=== PATIENT | female | born 1950 | race Caucasian/White ===

== ENCOUNTER 2017-03-14 16:03 | Emergency (ER) | payer MEDICAID ==
[~2017-03-14] VITALS: Ht 162.6 cm; Wt 56.2 kg
[2017-03-14 16:07] VITALS: BP 96/63
[2017-03-14 17:03] LABS: PATH.CAST-FLAG NOT PRESENT; SPERM-FLAG NOT PRESENT; SRC-FLAG NOT PRESENT; XTAL-FLAG NOT PRESENT; YLC-FLAG NOT PRESENT
[2017-03-14 17:23] LABS: ASPARTATE AMINO TRANSFERASE 17 U/L (15-37); BLOOD UREA NITROGEN 22 mg/dL (7-18)
[2017-03-14] MEDS ORDERED: ONDA4TAB13 SL (17:47)
[2017-03-14] MEDS ORDERED: HYDROmorphone 1 MG/ML, 1ML IM ONE (19:00)
[2017-03-14] MEDS ORDERED: CEFTRIAXONE 1,000 MG IM ONE (19:00)
[2017-03-14] MEDS ORDERED: KETOROLAC 30 MG/1 ML IM ONE (19:00)
[2017-03-14] MEDS ORDERED: HYDROmorphone 1 MG/ML, 1ML ONE ×2 (19:09→19:21)
[2017-03-14] MEDS ORDERED: CEFTRIAXONE 1,000 MG ONE (19:09)
[2017-03-14] MEDS ORDERED: LIDOCAINE 1%, 20ML ONE (19:09)
[2017-03-14] MEDS ORDERED: KETOROLAC 30 MG/1 ML ONE (19:09)
[2017-03-14] MEDS ORDERED: ONDANSETRON ODT 4 MG ONE (20:12)
== END 2017-03-14 19:53 | disposition home or self-care (01) ==
LOC: ED 19:30
DX: K50.90 Crohn's disease, unspecified, without complications (principal); N30.01 Acute cystitis with hematuria
CPT/HCPCS: 36415; 74176; 80053; 81001; 83690; 85025; 87086; 96372; J0696; J1170